=== PATIENT | female | born 1960 ===

== ENCOUNTER 2025-03-14 11:15 | Inpatient (IN) | payer OTHER ==
[~2025-03-14] VITALS: Ht 172.7 cm; Wt 97.5 kg
[2025-03-14 15:32] VITALS: BP 110/72
[2025-03-14] MEDS ORDERED: METFORMIN HCL1000 M2 PO (15:35)
[2025-03-14] MEDS ORDERED: ATORVASTATIN CA10 MG PO (15:35)
[2025-03-14] MEDS ORDERED: GLIPIZIDE XL2.5 MG PO (15:35)
[2025-03-14] MEDS ORDERED: HYDRODIURIL12.5 MG PO (15:36)
[2025-03-14] MEDS ORDERED: TENORMIN25 MG PO (15:36)
[2025-03-14] MEDS ORDERED: TRULICITY4.5 MG/0.5 (15:36)
[2025-03-14] MEDS ORDERED: SYNTHROID125 MCG PO (15:37)
[2025-03-14] MEDS ORDERED: MAXIMUM D3325 MCG PO (15:37)
[2025-03-14] MEDS ORDERED: MONTELUKAST SODI4 M1 (15:37)
[2025-03-14] MEDS ORDERED: ACID-PEP20 MG (15:38)
[2025-03-14] MEDS ORDERED: CLONAZEPAM1 MG PO (15:38)
[2025-03-18] MEDS ORDERED: CEFTRIAXONE SODIUM 2,000 MG VIAL ONE (07:07)
[2025-03-18] MEDS ORDERED: METRONIDAZOLE/SODIUM CHLORIDE 500 MG/100 ML PIGGYBACK IV ONE ×2 (07:08→10:48)
[2025-03-18] MEDS ORDERED: ONDANSETRON HCL 2 MG/ML VIAL IV PRN (09:45)
[2025-03-18] MEDS ORDERED: RINGERS SOLUTION,LACTATED 1,000 ML IV SCH (09:45)
[2025-03-18] MEDS ORDERED: OxyCODONE HCL 5 MG TABLET (ROXICODONE) PO PRN (09:45)
[2025-03-18] MEDS ORDERED: MORPHINE SULFATE 4 MG/ML CARTRIDGE IV PRN (09:45)
[2025-03-18] MEDS ORDERED: FAMOTIDINE/PF 20 MG/2 ML VIAL IV PUSH SCH (09:47)
[2025-03-18] MEDS ORDERED: CIPROFLOXACIN IN 5 % DEXTROSE 400 MG/200 ML PIGGYBAG IV SCH (09:47)
[2025-03-18] MEDS ORDERED: METRONIDAZOLE/SODIUM CHLORIDE 500 MG/100 ML PIGGYBACK IV SCH (09:47)
[2025-03-18] MEDS ORDERED: LACTOBACILLUS ACIDOPHILUS 1 CAP CAP PO SCH (09:49)
[2025-03-18] MEDS ORDERED: TAMSULOSIN HCL 0.4 MG CAP PO SCH (09:49)
[2025-03-18] MEDS ORDERED: SUGAMMADEX SODIUM 200 MG/2 ML VIAL IV ONE (10:00)
[2025-03-18] MEDS ORDERED: PROMETHAZINE HCL 50 MG/ML AMPUL IM ONE (10:13)
[2025-03-18] MEDS ORDERED: CIPROFLOXACIN IN 5 % DEXTROSE 400 MG/200 ML PIGGYBAG IV ONE (10:48)
[2025-03-18] MEDS ORDERED: FAMOTIDINE/PF 20 MG/2 ML VIAL ONE (10:48)
[2025-03-18] MEDS ORDERED: ACETAMINOPHEN 500 MG GEL..CAP PO SCH (12:00)
[2025-03-18] MEDS ORDERED: HYOSCYAMINE SULFATE 0.125 MG TAB.SUBL SL SCH (13:00)
[2025-03-18 13:25] VITALS: BP 164/73; O2SAT 98
[2025-03-18 16:00] VITALS: BP 158/73; O2SAT 99
[2025-03-18] MEDS ORDERED: GABAPENTIN 300 MG CAPSULE PO SCH (17:00)
[2025-03-19 01:04] VITALS: BP 122/75; O2SAT 99
[2025-03-19] MEDS ORDERED: LEVOTHYROXINE SODIUM 125 MCG TABLET PO SCH (06:00)
[2025-03-19 08:00] VITALS: BP 112/73; O2SAT 95
[2025-03-19 08:12] LABS: BASO % 0.4 % (0.1-1.2); EOS # 0.06 (0.04-0.54); EOS % 0.7 % (0.7-7.0); LYMPH # 1.90 (1.18-3.74); LYMPH % 23.2 % (19.3-53.1); MEAN PLATELET VOLUME 9.90 fl (9.4-12.4); MONO # 0.83 (0.24-0.82); MONO % 10.1 % (4.7-12.5); NEUT # 5.29 (1.56-6.13); NEUT % 64.7 % (34.0-71.1)
[2025-03-19 08:13] LABS: RED CELL DISTRIBUTION WIDTH 26.0 % (11.6-14.4)
[2025-03-19 08:40] LABS: BUN CREA RATIO 10.0 (7.0-25.0); CREATININE SERUM 0.58 mg/dL (0.55-1.02); GFR 104.66; GLUCOSE FASTING 114.0 mg/dL (65-100); OSMOLALITY SERUM 283.0 MOSM/KG (275-295)
[2025-03-19] MEDS ORDERED: ATORVASTATIN CALCIUM 10 MG TABLET PO SCH (09:00)
[2025-03-19] MEDS ORDERED: CLONAZEPAM 1 MG TABLET PO SCH (09:00)
[2025-03-19] MEDS ORDERED: ATENOLOL 25 MG TABLET PO SCH (09:00)
[2025-03-19] MEDS ORDERED: MAGNESIUM SULFATE IN WATER 50 ML IV NR (13:00)
[2025-03-19 16:00] VITALS: BP 97/64; O2SAT 98
[2025-03-19] MEDS ORDERED: ENOXAPARIN SODIUM 40 MG/0.4 ML SYRINGE SUBCUTANEO SCH (17:00)
[2025-03-19] MEDS ORDERED: ORPHENADRINE CITRATE 100 MG TABLET PO PRN (17:30)
[2025-03-20 00:27] VITALS: BP 101/68; O2SAT 98
[2025-03-20 08:33] VITALS: BP 99/62; O2SAT 97
[2025-03-20] MEDS ORDERED: ENOXAPARIN SODIUM 40 MG/0.4 ML SYRINGE SUBCUTANEO SCH (09:00)
[2025-03-20 16:27] LABS: BASO % 0.6 % (0.1-1.2); EOS # 0.18 (0.04-0.54); EOS % 2.5 % (0.7-7.0); LYMPH # 2.57 (1.18-3.74); LYMPH % 35.8 % (19.3-53.1); MEAN PLATELET VOLUME 10.70 fl (9.4-12.4); MONO # 0.62 (0.24-0.82); MONO % 8.6 % (4.7-12.5); NEUT # 3.70 (1.56-6.13); NEUT % 51.7 % (34.0-71.1)
[2025-03-20 16:29] LABS: RED CELL DISTRIBUTION WIDTH 26.5 % (11.6-14.4)
[2025-03-20 16:48] VITALS: BP 114/75; O2SAT 98
[2025-03-21 01:13] VITALS: BP 129/75; O2SAT 99
[2025-03-21 07:13] LABS: BASO % 0.7 % (0.1-1.2); EOS # 0.17 (0.04-0.54); EOS % 3.9 % (0.7-7.0); LYMPH # 1.85 (1.18-3.74); LYMPH % 42.2 % (19.3-53.1); MEAN PLATELET VOLUME 10.20 fl (9.4-12.4); MONO # 0.38 (0.24-0.82); MONO % 8.7 % (4.7-12.5); NEUT # 1.91 (1.56-6.13); NEUT % 43.6 % (34.0-71.1)
[2025-03-21 07:39] LABS: RED CELL DISTRIBUTION WIDTH 25.9 % (11.6-14.4)
[2025-03-21 07:43] LABS: BUN CREA RATIO 10.0 (7.0-25.0); CREATININE SERUM 0.5 mg/dL (0.55-1.02); GFR 124.21; GLUCOSE FASTING 118.0 mg/dL (65-100); OSMOLALITY SERUM 285.0 MOSM/KG (275-295)
[2025-03-21 08:00] VITALS: BP 145/80; O2SAT 99
[2025-03-21] MEDS ORDERED: SOD FERRIC GLUC COMPLX/SUCROSE 62.5 MG/5 ML AMPUL IV SCH (09:00)
== END 2025-03-21 12:55 | disposition home or self-care (01) | DRG 331 ==
LOC: O/R 03-18 06:00 → SURH 03-18 11:00
PROVIDERS: Surgery; ADMIT Surgery; ATTEND Surgery
PROC: 0DBP4ZZ Excision of Rectum, Percutaneous Endoscopic Approach (ICD-10-PCS; 2025-03-18)
PROC: 07BB4ZZ Excision of Mesenteric Lymphatic, Percutaneous Endoscopic Approach (ICD-10-PCS; 2025-03-18)
PROC: 0DNW4ZZ Release Peritoneum, Percutaneous Endoscopic Approach (ICD-10-PCS; 2025-03-18)
PROC: 0DJD8ZZ Inspection of Lower Intestinal Tract, Via Natural or Artificial Opening Endoscopic (ICD-10-PCS; 2025-03-18)
PROC: 0DTN4ZZ Resection of Sigmoid Colon, Percutaneous Endoscopic Approach (ICD-10-PCS; principal; 2025-03-18 11:00)
DX: C18.7 Malignant neoplasm of sigmoid colon (principal); R59.0 Localized enlarged lymph nodes; K66.0 Peritoneal adhesions (postprocedural) (postinfection)